=== PATIENT | female | born 1975 | race Caucasian/White ===

== ENCOUNTER → 2019-11-29 | Outpatient (CLI) | payer BC ==
[~2019-11-29] MED LIST: HYDROCODON-ACE1 EAC7 PO; IBUPROFEN 600600 M1 PO
== END ==
LOC: M.LAB 07:17
PROVIDERS: ATTEND Internal Medicine Gastroenterology
DX: Z01.812 Encounter for preprocedural laboratory examination (principal); K92.1 Melena